=== PATIENT | female | born 1950 | race Two or more races ===

== ENCOUNTER 2017-08-19 08:57 | Outpatient (CLI) | payer OTHER ==
[~2017-08-19 08:57] MED LIST: SYNTHROID88 MCG PO
== END 2017-08-19 09:05 | disposition home or self-care (01) ==
LOC: LAB 08:57
DX: I11.9 Hypertensive heart disease without heart failure (principal); E03.8 Other specified hypothyroidism; E78.2 Mixed hyperlipidemia

== ENCOUNTER 2018-08-24 13:39 | Emergency (ER) | payer OTHER ==
[~2018-08-24] VITALS: Ht 170.2 cm; Wt 93.9 kg
== END 2018-08-24 17:37 | disposition home or self-care (01) ==
LOC: ER 13:39
DX: S80.12XA Contusion of left lower leg, initial encounter (principal); W18.39XA Other fall on same level, initial encounter; Y93.89 Activity, other specified; Y92.89 Other specified places as the place of occurrence of the external cause; Y99.8 Other external cause status